=== PATIENT | male | born 1945 | race Caucasian/White ===

== ENCOUNTER → 2019-06-07 | Outpatient (CLI) | payer MEDICARE, OTHER ==
[~2019-06-07] MED LIST: Cleocin HCl300 MG PO; Crutch1 EACH MISC; IBUP600 PO; Keflex500 MG PO; Norco 5-325 Ta1 EACH PO
[2019-06-07 13:23] LABS: Source, Urine Clean Catch
[2019-06-07 18:03] LABS: Bilirubin, Urine Neg (Neg); Blood, Urine Neg (Neg); Glucose Qualitative, Urine Neg (Neg); Ketones, Urine Neg (Neg); Leukocyte Esterase, Urine Neg (Neg); Nitrite, Urine Neg (Neg); Protein, Urine Neg (Neg); Urobilinogen, Urine NORM (Normal)
[2019-06-07 18:24] LABS: Appearance, Urine Clear (Clear); Color, Urine Yellow (P-Yellow)
== END | disposition home or self-care (01) ==
LOC: LAB SHORT 13:21 → LAB 13:21
PROVIDERS: Nurse Practitioner Family
DX: E78.1 Pure hyperglyceridemia (principal)
CPT/HCPCS: 81003

== ENCOUNTER 2021-10-28 14:23 | Emergency (ER) | payer OTHER ==
[~2021-10-28] VITALS: Ht 160 cm; Wt 63.5 kg
[2021-10-28] MEDS ORDERED: AMOCLA875 PO (16:46)
[2021-10-28] MEDS ORDERED: TRIDERM28.4 GM TOP (16:47)
== END 2021-10-28 16:53 | disposition home or self-care (01) ==
LOC: ER 14:23
DX: K08.89 Other specified disorders of teeth and supporting structures (principal); L25.9 Unspecified contact dermatitis, unspecified cause; F17.200 Nicotine dependence, unspecified, uncomplicated; Z79.2 Long term (current) use of antibiotics; Z79.899 Other long term (current) drug therapy; Z88.2 Allergy status to sulfonamides; Z88.8 Allergy status to other drugs, medicaments and biological substances
CPT/HCPCS: 99282; A9270

== ENCOUNTER → 2021-11-12 | Outpatient (CLI) | payer OTHER ==
[~2021-11-12] MED LIST changes: +AMOCLA875 PO; +TRIDERM28.4 GM TOP
[2021-11-12 15:18] LABS: Source, Urine Clean Catch
[2021-11-12 17:45] LABS: Appearance, Urine Clear (Clear); Bilirubin, Urine Neg (Neg); Blood, Urine Neg (Neg); Color, Urine Yellow (P-Yellow); Glucose Qualitative, Urine Neg (Neg); Ketones, Urine Neg (Neg); Leukocyte Esterase, Urine Neg (Neg); Nitrite, Urine Neg (Neg); Protein, Urine 1+ (Neg); Specific Gravity, Urine 1.015 (1.003-1.022); Urobilinogen, Urine 1+ (Normal)
== END ==
LOC: LAB SHORT 15:16
DX: R34 Anuria and oliguria (principal); I10 Essential (primary) hypertension; D44.9 Neoplasm of uncertain behavior of unspecified endocrine gland; N39.0 Urinary tract infection, site not specified; J44.9 Chronic obstructive pulmonary disease, unspecified
CPT/HCPCS: 36415

== ENCOUNTER 2021-11-14 13:54 | Emergency (ER) | payer OTHER ==
[~2021-11-14] VITALS: Ht 160 cm; Wt 59.9 kg
== END 2021-11-14 15:52 | disposition left against medical advice (07) ==
LOC: ER 13:54
DX: R07.89 Other chest pain (principal); Z53.21 Procedure and treatment not carried out due to patient leaving prior to being seen by health care provider
CPT/HCPCS: 71045; 93005; 93010; 99282-25